=== PATIENT | female | born 1955 | race Caucasian/White ===

== ENCOUNTER 2019-08-10 13:58 | Inpatient (IN) ==
[2019-08-10] MEDS ORDERED: KLONOPIN PO ONE (14:37)
[2019-08-10] MEDS ORDERED: M.V.I.-12 10 ML, FOLIC ACID 1 MG, MAGNESIUM SULFATE 1 GM, THIAMINE 100 MG in NS 1,000 ML IV ONE (14:38)
[2019-08-10 14:46] LABS: URINE SOURCE CLEAN CATCH
[2019-08-10 14:49] LABS: BASO# 0.06 X1000 (0.0-0.2); EOS# 0.15 X1000 (0.0-0.7); EOS% 2.5 % (0.0-10.0); HEMATOCRIT 45.4 % (37.0-47.0); HEMOGLOBIN 15.2 g/dL (12.0-16.0); IMM GRAN# 0.03 X1000 (0.0-0.04); IMM GRAN% 0.5 % (0.0-0.5); LYMPH# 2.02 X1000 (1.2-3.4); LYMPH% 33.8 % (20.5-51.1); MCH 32.3 PG (27-31); MCHC 33.5 g/dL (33-37); MCV 96.6 FL (81-99); MONO# 0.64 X1000 (0.11-0.59); MONO% 10.7 % (1.7-9.3); NEUT# 3.07 X1000 (1.4-6.5); NEUT% 51.5 % (42.2-75.2); PLT 108 X1000 (130-400); RDW 12.4 % (11.5-14.5); WBC 5.97 X1000 (4.8-10.8)
[2019-08-10 14:50] LABS: BILIRUBIN URINE NEGATIVE (NEGATIVE); BLOOD URINE NEGATIVE (NEGATIVE); COLOR YELLOW; GLUCOSE URINE NEGATIVE (NEGATIVE); KETONE URINE NEGATIVE (NEGATIVE); LEUKOCYTES URINE LARGE (NEGATIVE); NITRITE URINE NEGATIVE (NEGATIVE); PH URINE 6.5; PROTEIN URINE TRACE mg/dL (NEGATIVE); SP GRAVITY URINE 1.023; TURBIDITY URINE CLEAR (CLEAR); UROBILINOGEN URINE NORMAL (NORMAL)
[2019-08-10 14:52] LABS: UR EPITHELIAL CELLS <10 /HPF (<10); URINE BACTERIA NEGATIVE /HPF; URINE RBC <10 /HPF (<10)
[2019-08-10 14:58] LABS: UR AMPHETAMINES QUAL NONE DETECTED (NONE DETECT); UR BARBITUATES QUAL NONE DETECTED (NONE DETECT); UR BENZODIAZEPIN QUAL NONE DETECTED (NONE DETECT); UR CANNABINOIDS QUAL NONE DETECTED (NONE DETECT); UR COCAINE QUAL NONE DETECTED (NONE DETECT); UR METHADONE QUAL NONE DETECTED (NONE DETECT); UR METHAMPHETAMINE QUAL NONE DETECTED (NONE DETECT); UR OPIATES QUAL NONE DETECTED (NONE DETECT); UR OXYCODONE QUAL NONE DETECTED (NONE DETECT); UR PCP QUAL NONE DETECTED (NONE DETECT); UR PROPOXYPHENE QUAL NONE DETECTED (NONE DETECT); UR TCA QUAL NONE DETECTED (NONE DETECT)
[2019-08-10 15:10] LABS: AGAP 16; ALBUMIN 4.3 g/dL (3.5-5.0); ALKALINE PHOSPHATASE 84 U/L (32-104); BUN 18 mg/dL (8-22); CALCIUM 9.5 mg/dL (8.8-10.2); CHLORIDE 99 mmol/L (98-107); COSMO 273; CREATININE 0.6 mg/dL (0.5-0.9); ESTIMATED GFR > 60; GLUCOSE 177 mg/dL (70-104); GOT 59 U/L (10-30); GPT 54 U/L (10-36); LIPASE 19 U/L (13-60); MAGNESIUM 1.6 mg/dL (1.5-2.7); POTASSIUM 4.5 mmol/L (3.5-5.1); SODIUM 133 mmol/L (136-145); TCO2 18 mmol/L (25-35); TOTAL PROTEIN 7.8 g/dL (6.3-8.3)
--- NOTE | 2019-08-10 15:46 | PROVIDER DOCUMENTATION ---
This chart was entered by Joanne Vega Scribe, acting as scribe for Mary Luque CRNP. [facility] Abuse/Overdose - General Chief Complaint: Req. Detox Stated Complaint: DETOX/ANIEXTY Time Seen by Provider: 08/10/19 14:28 Source: patient, family (son at bedside) Allergies/Adverse Reactions: Allergies Allergy/AdvReac Type Severity Reaction Status Date / Time codeine Allergy ITCHING Verified 08/10/19 14:54 Home Medications: Home Medication List Medication Instructions Recorded Confirmed Last Taken Type Atenolol 50 mg PO DAILY 04/01/12 08/10/19 04/19/15 History Omeprazole [Prilosec] 40 mg PO DAILY 04/01/12 08/10/19 04/19/15 History Umeclidinium Brm/Vilanterol Tr 1 each IH DAILY 11/25/14 08/10/19 04/19/15 History [Anoro Ellipta 62.5-25 Mcg INH] Baclofen 10 mg PO DAILY 06/29/18 08/10/19 Unknown History Fenofibrate 160 mg PO DAILY 06/29/18 08/10/19 Unknown History Lisinopril/Hydrochlorothiazide 1 each PO DAILY 06/29/18 08/10/19 Unknown History [Lisinopril-Hctz 10-12.5 mg Tab] Nabumetone [Relafen] 750 mg PO BID 06/29/18 08/10/19 Unknown History Zolpidem Tartrate [Ambien] 10 mg PO HS 06/29/18 08/10/19 Unknown History - History of Present Illness-Drug/Alcohol Nature of Presenting Problem: 64 yof presents to the ed requesting rehab for 30 years of etoh abuse and sts has been on a binge for the last month. pt admits to drinking 1-2 bottles of wine per night and sts last drink was last night. pt on exam is nontoxic in appearance and is not in active DT This episode of drinking or use began:: this morning (wanted to have rehab) Severity: reports: mild Situational problems related to:: reports: N/A Psychiatric Complaints: reports: insomnia. denies: hallucinating, suicidal ideation Associated Symptoms: denies: back/neck pain, chest pain, diarrhea, fever/chills, headaches, nausea, vomiting Any injuries associated with this episode of intoxication?: No Similar Symptoms Previously?: Yes Recently seen or treated by another doctor?: No - Substance Abuse Substance Use: reports: alcohol Age drug/alcohol abuse began?: 28 (30 years of abuse ETOH) Duration of Abuse? (years): 30 - Alcohol Abuse Usually drinks:: binge Usual alcohol intake amount?: 1-2 bottles wine Review of Systems - Adult - REVIEW OF SYSTEMS - ADULT Constitutional: denies: chills, fever Eyes: reports: no symptoms reported Ears, Nose, Mouth & Throat: reports: no symptoms reported Cardiovascular: denies: chest pain, palpitations Respiratory: denies: cough, shortness of breath, wheezing Gastrointestinal: denies: abdominal pain, diarrhea, nausea, vomiting Genitourinary: reports: no symptoms reported Musculoskeletal: denies: back pain, neck pain Integumentary: reports: no symptoms reported Neurological: reports: no symptoms reported Psychiatric: reports: see HPI, alcohol/drug dependence, insomnia Endocrine: reports: no symptoms reported Hematologic/Lymphatic: reports: no symptoms reported Allergic/Immunologic: reports: no symptoms reported All Other Systems: Reviewed and Negative Past History - Adult - PAST MEDICAL HISTORY-ADULT Review of Records: reports: Old Records Reviewed, Nursing Assessment Review, Medications Reviewed, Social history reviewed & non-contributory. Major Childhood Illnesses: reports: denies history Cardiovascular: reports: CAD, HTN, hyperlipidemia Respiratory: reports: asthma, COPD, lung disease Gastrointestinal: reports: GERD Obstetrical/Gynecological: reports: denies history Genitourinary: reports: kidney disease Musculoskeletal: reports: denies history Neurological: reports: denies history Psychiatric: reports: anxiety Endocrine/Immune: reports: denies history Other Conditions: reports: denies history - PRIOR SURGERIES/PROCEDURES Surgical/Procedure History: reports: cholecystectomy, hysterectomy, tonsillectomy, orthopedic (extremity) - IMMUNIZATION STATUS Childhood Immunizations: See Nurse Assessment Flu Vaccine: See Nurse Assessment - FAMILY HISTORY Family History: reviewed, not pertinent Physical Exam-General - PHYSICAL EXAM-ADULT Initial Vital Signs Reviewed: Yes - CONSTITUTIONAL General Appearance: alert, no apparent distress, anxious - EYES Eyes: PERRL/EOMI, pink conjunctivae - HEAD, EARS, NOSE, MOUTH & THROAT HENMT: moist mucous membranes - NECK Neck: non-tender, full range of motion, supple, normal inspection - RESPIRATORY Respiratory: chest non-tender, lungs clear, normal breath sounds - CARDIOVASCULAR Cardiovascular: normal peripheral pulses, regular rate, rhythm - CHEST (BREASTS) Chest/Breast: deferred - GASTROINTESTINAL (ABDOMEN) Abdominal Exam: normal bowel sounds, non tender, soft - GENITOURINARY Female Genitalia/Pelvic Exam: deferred Rectal Exam: deferred Hemoccult Exam: deferred - LYMPHATIC Lymphatic: no adenopathy - MUSCULOSKELETAL Back Exam: normal inspection, no CVA tenderness, no vertebral tenderness Extremity: normal range of motion, non-tender, normal gait, normal inspection - SKIN Integumentary: normal color, normal turgor, warm/dry - NEUROLOGIC Neurologic: grossly normal - PSYCHIATRIC Psych/Mental Status: normal mood/affect, normal thought content, normal thought process, oriented x 3 Progress - PLAN OF CARE/RESULTS Progress/Plan/Lab Results: Vital Signs - 8 hr 08/10/19 14:02 Temperature 98 F Pulse Rate 68 Respiratory Rate 18 Blood Pressure 112/77 O2 Sat by Pulse Oximetry 96 Laboratory Results - last 24 hr 08/10/19 08/10/19 08/10/19 14:40 14:40 14:40 WBC 5.97 RBC 4.70 Hgb 15.2 Hct 45.4 MCV 96.6 MCH 32.3 H MCHC 33.5 RDW Std Deviation 12.4 Plt Count 108 L MPV 10.0 Immature Gran % (Auto) 0.5 Neut % (Auto) 51.5 Lymph % (Auto) 33.8 Horry % (Auto) 10.7 H Eos % (Auto) 2.5 Baso % (Auto) 1.0 H Immature Gran # (Auto) 0.03 Neut # (Auto) 3.07 Lymph # (Auto) 2.02 Horry # (Auto) 0.64 H Eos # (Auto) 0.15 Baso # (Auto) 0.06 Sodium Potassium Chloride Carbon Dioxide Anion Gap BUN Creatinine Estimated GFR/1.73 m2 BUN/Creatinine Ratio Glucose Calculated Osmolality Calcium Magnesium Total Bilirubin AST ALT Alkaline Phosphatase Total Protein Albumin Globulin Albumin/Globulin Ratio Amylase 28 Lipase Urine Source Urine Color Urine Turbidity Urine pH Ur Specific Taylor Urine Protein Ur Glucose (Stick) Ur Ketones (Stick) Urine Blood Urine Nitrite Urine Bilirubin Urobilinogen Dipstick Urine Leukocytes Urine WBC (Auto) Urine RBC (Auto) U Epithel Cells (Auto) Urine Bacteria (Auto) Urine Opiates Screen Ur Oxycodone Screen Urine Methadone Screen U Propoxyphene Qual Ur Barbituates Screen Ur Tricyclics Screen Ur Phencyclidine Scrn Ur Amphetamines Screen U Methamphetamines Scrn U Benzodiazepines Scrn Urine Cocaine Screen U Cannabinoids Screen Plasma/Serum Ethyl Alc 08/10/19 08/10/19 08/10/19 14:40 14:40 14:40 WBC RBC Hgb Hct MCV MCH MCHC RDW Std Deviation Plt Count MPV Immature Gran % (Auto) Neut % (Auto) Lymph % (Auto) Horry % (Auto) Eos % (Auto) Baso % (Auto) Immature Gran # (Auto) Neut # (Auto) Lymph # (Auto) Horry # (Auto) Eos # (Auto) Baso # (Auto) Sodium 133 L Potassium 4.5 Chloride 99 Carbon Dioxide 18 L Anion Gap 16 BUN 18 Creatinine 0.6 Estimated GFR/1.73 m2 > 60 BUN/Creatinine Ratio 30 Glucose 177 H Calculated Osmolality 273 Calcium 9.5 Magnesium 1.6 Total Bilirubin 0.60 AST 59 H ALT 54 H Alkaline Phosphatase 84 Total Protein 7.8 Albumin 4.3 Globulin 4.0 Albumin/Globulin Ratio 1.0 Amylase Lipase 19 Urine Source CLEAN CATCH Urine Color YELLOW Urine Turbidity CLEAR Urine pH 6.5 Ur Specific Taylor 1.023 Urine Protein TRACE A Ur Glucose (Stick) NEGATIVE Ur Ketones (Stick) NEGATIVE Urine Blood NEGATIVE Urine Nitrite NEGATIVE Urine Bilirubin NEGATIVE Urobilinogen Dipstick NORMAL Urine Leukocytes LARGE A Urine WBC (Auto) 10-20 A Urine RBC (Auto) <10 U Epithel Cells (Auto) <10 Urine Bacteria (Auto) NEGATIVE Urine Opiates Screen NONE DETECTED Ur Oxycodone Screen NONE DETECTED Urine Methadone Screen NONE DETECTED U Propoxyphene Qual NONE DETECTED Ur Barbituates Screen NONE DETECTED Ur Tricyclics Screen NONE DETECTED Ur Phencyclidine Scrn NONE DETECTED Ur Amphetamines Screen NONE DETECTED U Methamphetamines Scrn NONE DETECTED U Benzodiazepines Scrn NONE DETECTED Urine Cocaine Screen NONE DETECTED U Cannabinoids Screen NONE DETECTED Plasma/Serum Ethyl Alc Orders Category Date Time Status ALCOHOL BLOOD Stat Lab 08/10/19 14:40 Completed AMYLASE [CHEM] Stat Lab 08/10/19 14:40 Completed CBC WITH DIFF [HEME] Stat Lab 08/10/19 14:40 Completed COMPREHENSIVE METABOLIC PANEL [CHEM] Stat Lab 08/10/19 14:40 Completed LIPASE [CHEM] Stat Lab 08/10/19 14:40 Completed MAGNESIUM [CHEM] Stat Lab 08/10/19 14:40 Completed URINALYSIS W/POSS RFLX CULT [URINALYSIS] Stat Lab 08/10/19 14:40 Completed URINE CULTURE [RM] Routine Lab 08/10/19 15:23 [address]UG S[address]EN [address] Stat Lab 08/10/19 14:40 Completed Clonazepam [Klonopin] Med 08/10/19 14:37 Discontinued 0.5 mg PO NOW ONE Mvi [M.v.i.-12] 10 ml Med 08/10/19 14:38 Discontinued Folic Acid 1 mg Magnesium Sulfate 1 gm Thiamine 100 mg 0.9% Sodium Chloride Inj [Ns] 1,000 ml IV NOW Result Diagrams: 08/10/19 14:40 08/10/19 14:40 - CONSULTS/PCP/HOSPITALIST Notification #1 *Consult/PCP/Hospitalist*: DR KENNEY Time Discussed: 15:45 Consult Disposition: Admit Departure - Departure Date of Disposition Decision: 08/10/19 Time of Disposition Decision: 15:45 DIAGNOSIS: Alcohol abuse, Alcohol withdrawal Disposition: ADMITTED INPATIENT 09 Certified Medical Emergency: Emergent Condition: Stable Referrals and Follow-Ups: Roberta Dey MD [Primary Care Provider] - Discharge Education: Steps to Quit Smoking, [id number] - Critical Care Note This patient required my direct & personal management of CC.: No Attestation - Physician/ RONEY Attestation Patient care was provided by Advanced Practice Provider:: Yes Advanced Practice Provider:: Mary Luque Advanced Practice Provider documentation review:: The Mid-level provider documentation, treatment plan and medical decision making was reviewed by the physician who agrees with all treatment and medical decision making by the MLP. The physician spent face to face time with patient:: No Advanced Practice Provider documentation review:: Supervising physician onsite and consulted in the evaluation and care of this patient. The physician did not have a face to face encounter with the patient. This chart was documented by the indicated scribe, (Joanne Vega Scribe) and accurately reflects the services I performed and decisions made by me, Mary Luque CRNP, as attested by the provider's signature.
[2019-08-10] MEDS ORDERED: SENOKOT PO PRN (16:09)
[2019-08-10] MEDS ORDERED: DESYREL PO PRN (16:09)
[2019-08-10] MEDS ORDERED: DULCOLAX PR PRN (16:09)
[2019-08-10] MEDS ORDERED: D5W 1,000 ML IV PRN (16:09)
[2019-08-10] MEDS ORDERED: TUBERSOL ID ONE (16:09)
[2019-08-10] MEDS ORDERED: MAALOX PLUS LIQUID PO PRN (16:09)
[2019-08-10] MEDS ORDERED: NICODERM PATCH TD PRN (16:09)
[2019-08-10] MEDS ORDERED: PHENOBARBITAL IV PRN (16:09)
[2019-08-10] MEDS ORDERED: ZOFRAN ODT PO PRN (16:09)
[2019-08-10] MEDS ORDERED: ZOFRAN IV PRN (16:09)
[2019-08-10 17:45] LABS: INR 0.87; PROTIME 12.3 Seconds (11.0-16.0)
[2019-08-10] MEDS: LIBRIUM PO SCH ×2 (17:49→22:17)
[2019-08-10] MEDS: ATARAX PO PRN (21:01)
[2019-08-10] MEDS: IMODIUM PO PRN (21:01)
[2019-08-10] MEDS: SEROQUEL PO PRN (22:21)
[2019-08-11] MEDS: MOTRIN PO PRN ×2 (03:21→20:48)
[2019-08-11] MEDS: LIBRIUM PO SCH ×4 (04:10→23:16)
[2019-08-11] MEDS: TYLENOL PO PRN (05:29)
[2019-08-11] MEDS: PROTONIX PO SCH (06:05)
[2019-08-11] MEDS: IMODIUM PO PRN (09:16)
[2019-08-11] MEDS: VITAMIN B-1 PO SCH (09:16)
[2019-08-11] MEDS: CYMBALTA PO SCH (09:16)
[2019-08-11] MEDS: THERA M PLUS PO SCH (09:16)
[2019-08-11] MEDS: ROCEPHIN 1 GM in NS 50 ML IV SCH (09:17)
[2019-08-11] MEDS: FOLIC ACID PO SCH (09:17)
--- NOTE | 2019-08-11 14:30 | PROGRESS NOTE ---
DATE: 08/11/2019 SUBJECTIVE: Patient states that she is feeling okay. Denies any fevers. States her muscle aches are improved and her tremors seem to have resolved currently. PHYSICAL EXAMINATION: Vital Signs: Temperature 97.5 degrees, pulse 67, respiratory rate 18, BP 120/60. General: The patient is awake, currently in no respiratory distress. HEENT: Normocephalic. Neck: Supple. Cardiovascular: Regular rate. Chest: Clear. Abdomen: Soft. Extremities: Moves all extremities. Neurologic: No changes. ASSESSMENT: 1. Nausea and vomiting. 2. Abdominal pain. 3. Myalgias. 4. Tremors. 5. Paresthesias. 6. Paroxysmal sweating. 7. Hypertension. 8. Chronic obstructive pulmonary disease. 9. Alcohol abuse withdrawal and stabilization. PLAN: We are going to continue Librium. Continue counseling. Further orders as needed. cc: Alan Gao MD
--- NOTE | 2019-08-11 19:48 | HISTORY AND PHYSICAL ---
CHIEF COMPLAINT: Nausea. HISTORY OF PRESENT ILLNESS: The patient is a 64-year-old female who presented to the ER with nausea, vomiting, abdominal pain, myalgias, paresthesias. SOCIAL HISTORY: The patient is , on disability. Lives at home in [place]. PAST MEDICAL HISTORY: Hypertension, COPD, anxiety, reflux, high cholesterol, history of blackouts due to alcohol, recurrent cellulitis, history of pancreatitis that was alcohol related. MEDICATIONS: Cymbalta 30, Klonopin 0.5, fenofibrate, Anoro, albuterol, atenolol 50, lisinopril/hydrochlorothiazide 10/12.5, Prilosec 40, Seroquel 75, Ambien 10. ALLERGIES: Codeine. REVIEW OF SYSTEMS: CIWA score is 30 secondary to nausea, vomiting, frequent dry heaves, diarrhea, moderate tremors at rest, moderately anxious, fidgety, unable to sit still, sensitivity to light and sound, difficulty concentrating, decreased p.o. intake. Denies any chest pain, palpitations. Denies fevers, chills. Denies headaches, blurred vision, change in vision. Denies any focalized numbness, tingling, weakness in her extremities. Does have diarrhea. Denies constipation, melena, hematochezia. Denies any dysuria, frequency, urgency. Denies skin rashes. SUBSTANCE ABUSE HISTORY: Patient was in [place] 20 years ago. Stayed sober for 15 years. Started drinking alcohol at age 14. Currently is drinking a bottle of wine a day. Started smoking at 14. Currently has been trying to vape for the past year. Prior to that was smoking a pack a day. FAMILY HISTORY: Noncontributory. PHYSICAL EXAMINATION: VITAL SIGNS: Reviewed. GENERAL: Patient is awake, alert. Currently in no respiratory distress, but is somewhat ill appearing. HEENT: Normocephalic. NECK: Supple. CARDIOVASCULAR: Regular rate. CHEST: Clear, nonlabored. ABDOMEN: Soft, nondistended. EXTREMITIES: Moves all extremities. NEUROLOGIC: No focal changes. SKIN: Warm, dry. No rashes. ASSESSMENT: 1. Nausea and vomiting. 2. Abdominal pain. 3. Myalgias. 4. Tremors. 5. Paresthesias. 6. Paroxysmal sweating. 7. Hypertension. 8. Chronic obstructive pulmonary disease. 9. Chronic anxiety. PLAN: We will continue patient in the hospital, continue high-dose Librium taper, and will follow. cc: Alan Gao MD
[2019-08-11] MEDS: ATARAX PO PRN (20:48)
[2019-08-11] MEDS: ROBAXIN PO PRN (20:48)
[2019-08-11] MEDS: SEROQUEL PO PRN (20:48)
[2019-08-12] MEDS: LIBRIUM PO SCH ×3 (04:14→17:07)
[2019-08-12] MEDS: PROTONIX PO SCH ×2 (04:15→07:30)
[2019-08-12 06:47] LABS: HEMATOCRIT 38.1 % (37.0-47.0); HEMOGLOBIN 12.6 g/dL (12.0-16.0); MCH 32.2 PG (27-31); MCHC 33.1 g/dL (33-37); MCV 97.4 FL (81-99); MPV 9.7 FL (7.4-10.4); RBC 3.91 XMIL (4.2-5.4); RDW 12.2 % (11.5-14.5); WBC 4.17 X1000 (4.8-10.8)
[2019-08-12 07:18] LABS: AGAP 15; ALBUMIN 3.7 g/dL (3.5-5.0); ALKALINE PHOSPHATASE 65 U/L (32-104); BUN 23 mg/dL (8-22); CALCIUM 8.9 mg/dL (8.8-10.2); CHLORIDE 109 mmol/L (98-107); COSMO 295; CREATININE 0.6 mg/dL (0.5-0.9); ESTIMATED GFR > 60; GLUCOSE 144 mg/dL (70-104); GOT 34 U/L (10-30); GPT 41 U/L (10-36); MAGNESIUM 1.7 mg/dL (1.5-2.7); POTASSIUM 3.6 mmol/L (3.5-5.1); SODIUM 145 mmol/L (136-145); TCO2 22 mmol/L (25-35); TOTAL PROTEIN 6.5 g/dL (6.3-8.3)
[2019-08-12] MEDS: ANORO ELLIPTA 62.5-25 MCG INH INH SCH (07:50)
[2019-08-12] MEDS: VITAMIN B-1 PO SCH (08:59)
[2019-08-12] MEDS: FOLIC ACID PO SCH (08:59)
[2019-08-12] MEDS: ROBAXIN PO PRN ×3 (08:59→22:58)
[2019-08-12] MEDS: MOTRIN PO PRN ×2 (08:59→17:07)
[2019-08-12] MEDS: ROCEPHIN 1 GM in NS 50 ML IV SCH ×2 (09:00→09:17)
[2019-08-12] MEDS: CYMBALTA PO SCH (09:00)
[2019-08-12] MEDS: THERA M PLUS PO SCH (09:00)
--- NOTE | 2019-08-12 16:43 | PROGRESS NOTE ---
DATE: 08/12/2019 SUBJECTIVE: Patient notes that she feels terrible. She is having muscle aches, fatigue, sweating. States overall she feels bad. OBJECTIVE: Vital Signs: Reviewed. Temp 97.8 degrees, pulse 82, respiratory rate 18, BP 137/73. General: Patient is currently in no respiratory distress. She is pleasant. HEENT: Normocephalic. Neck: Supple. Cardiovascular: Regular rate. Chest: Clear. Abdomen: Soft. Extremities: Moves all extremities. Neurologic: No focal changes. Skin: Warm, dry. No rashes. ASSESSMENT: 1. Nausea, vomiting. 2. Myalgias. 3. Paresthesias. 4. Tremors. 5. Alcohol abuse, withdrawal, and stabilization. 6. Chronic anxiety. 7. Chronic reflux. 8. Chronic obstructive pulmonary disease. 9. Hypertension. PLAN: We are going to slow down her Librium taper, although I do feel as though anxiety has a lot to do with her current symptoms more so than alcohol withdrawal. We will continue counseling and follow. cc: Alan Gao MD
[2019-08-12] MEDS: OMNICEF PO SCH (21:19)
[2019-08-12] MEDS: SEROQUEL PO PRN (22:57)
[2019-08-13] MEDS: PROTONIX PO SCH (06:06)
[2019-08-13] MEDS: BENTYL PO PRN (06:06)
[2019-08-13] MEDS: ANORO ELLIPTA 62.5-25 MCG INH INH SCH (07:55)
[2019-08-13] MEDS: CYMBALTA PO SCH (08:21)
[2019-08-13] MEDS: FOLIC ACID PO SCH (08:21)
[2019-08-13] MEDS: LIBRIUM PO SCH ×3 (08:21→22:51)
[2019-08-13] MEDS: VITAMIN B-1 PO SCH (08:21)
[2019-08-13] MEDS: THERA M PLUS PO SCH (08:22)
[2019-08-13] MEDS: OMNICEF PO SCH ×2 (08:22→22:51)
[2019-08-13] MEDS: MOTRIN PO PRN (11:57)
[2019-08-13] MEDS: ROBAXIN PO PRN ×2 (11:57→22:51)
--- NOTE | 2019-08-13 19:36 | PROGRESS NOTE ---
DATE: 08/13/2019 SUBJECTIVE: Patient notes she is still anxious, nervous, still stressed, still fatigued. Still having some mild sweating at times. Denies any fevers or chills. PHYSICAL EXAMINATION: Vital Signs: Reviewed. General: She is awake, alert. She is pleasant. She is in no current respiratory distress. HEENT: Normocephalic. Neck: Supple. Cardiovascular: Regular rate. Chest: Clear. Abdomen: Soft. Extremities: Moves all extremities. Neurologic: No focal changes. Skin: Warm and dry. No rashes. ASSESSMENT: 1. Urinary tract infection. We will continue antibiotics. 2. Acute hepatitis secondary to alcohol, improving. 3. Chronic anxiety. 4. Alcohol abuse withdrawal and stabilization. 5. Hypertension. 6. Chronic obstructive pulmonary disease. PLAN: Discussed with patient that she cannot stay on Librium forever and we certainly need to continue to slowly wean down. We will decrease from 50 t.i.d. to 25 every six hours and will follow. Expect that she will require two or three more days to slowly wean. cc: Alan Gao MD
[2019-08-13] MEDS: SEROQUEL PO PRN (22:52)
[2019-08-14] MEDS: BENTYL PO PRN (04:22)
[2019-08-14] MEDS: LIBRIUM PO SCH ×4 (04:22→22:37)
[2019-08-14] MEDS: ROBAXIN PO PRN (06:24)
[2019-08-14] MEDS: MOTRIN PO PRN (06:24)
[2019-08-14] MEDS: PROTONIX PO SCH (06:24)
[2019-08-14] MEDS: ANORO ELLIPTA 62.5-25 MCG INH INH SCH ×2 (07:30→09:24)
[2019-08-14] MEDS: VITAMIN B-1 PO SCH (08:50)
[2019-08-14] MEDS: THERA M PLUS PO SCH (08:50)
[2019-08-14] MEDS: FOLIC ACID PO SCH (08:50)
[2019-08-14] MEDS: CYMBALTA PO SCH (08:50)
--- NOTE | 2019-08-14 09:20 | Diag Imaging Result Doc PS360 ---
EXAM: KUB ABDOMEN HISTORY: pain TECHNIQUE: Three views COMPARISON: 04/25/2017. FINDINGS: There is moderate stool throughout the colon. No bowel obstruction. No organomegaly. No abnormal abdominal calcifications. Mild to moderate degenerative bone spurring in the lumbar spine. IMPRESSION: Moderate constipation Electronically signed by Moris Colmenares 08/14/2019 9:18 AM
--- NOTE | 2019-08-14 19:09 | PROGRESS NOTE ---
DATE: 08/14/2019 SUBJECTIVE: The patient states she has some abdominal pain diffusely. Denies any fevers or chills. Denies chest pains or palpitations. States she is able to eat without any difficulty. Does note she is still anxious and nervous. PHYSICAL EXAMINATION: Vital Signs: Reviewed and stable. Patient is awake and alert. She is in no current respiratory distress, lying in the bed. HEENT: Normocephalic. Neck: Supple. Cardiovascular: Regular rate. Chest: Clear. Abdomen: Soft. Extremities: Moves all extremities. Neurologic: No focal changes. Skin: Warm and dry. No rashes. ASSESSMENT: 1. Constipation as noted on her KUB. 2. Nausea, vomiting. Resolved. 3. Abdominal pain. 4. Myalgias. 5. Tremors. 6. Paresthesias. 7. Paroxysmal sweating. 8. Alcohol abuse, withdrawal, and stabilization. PLAN: We are going to continue patient in the hospital, continue to wean her Librium as tolerated. We will add lactulose for her constipation and will follow. cc: Alan Gao MD
[2019-08-14] MEDS: LACTULOSE PO SCH (22:36)
[2019-08-14] MEDS: SEROQUEL PO PRN (22:37)
[2019-08-15] MEDS: PROTONIX PO SCH (06:17)
[2019-08-15] MEDS: ANORO ELLIPTA 62.5-25 MCG INH INH SCH ×2 (07:29→07:30)
[2019-08-15] MEDS ORDERED: LIBRIUM PO SCH (09:00)
[2019-08-15] MEDS: LACTULOSE PO SCH ×2 (09:56→22:53)
[2019-08-15] MEDS: FOLIC ACID PO SCH (09:56)
[2019-08-15] MEDS: CYMBALTA PO SCH (09:56)
[2019-08-15] MEDS: REVIA PO SCH (09:56)
[2019-08-15] MEDS: THERA M PLUS PO SCH (09:57)
[2019-08-15] MEDS: VITAMIN B-1 PO SCH (09:57)
[2019-08-15] MEDS: TYLENOL PO PRN (12:55)
--- NOTE | 2019-08-15 21:01 | PROGRESS NOTE ---
DATE: 08/15/2019 SUBJECTIVE: Patient notes that she is still having difficulty getting out of bed, still tired, fatigued. Denies any chest pains, still having abdominal pain when she coughs. Denies any other issues currently. PHYSICAL EXAMINATION: Vital Signs: Reviewed. Temperature 97.6 degrees, pulse 69, respiratory rate 20, BP 163/90, saturation 96% on room air. General: Patient is awake, pleasant. She is in no distress. She has no tremors. HEENT: Normocephalic. Neck: Supple. Cardiovascular: Regular rate. Chest: Clear. Abdomen: Soft. Extremities: Moves all extremities, although generalized weakness. Neurologic: No changes. ASSESSMENT: 1. Nausea and vomiting. 2. Abdominal pain. 3. Myalgias. 4. Paresthesias. 5. Paroxysmal sweating. 6. Tremors, resolved. 7. Alcohol abuse withdrawal and stabilization. 8. Generalized weakness with adult failure to thrive. 9. Hypertension. PLAN: We will continue patient in the hospital. We have decreased Librium to 20 this morning, 10 tonight and hopefully 10 tomorrow morning, and then we will stop. We will continue physical therapy. Hopefully, her symptoms can resolve as far as her generalized weakness, and she can discharge home. She is stable from an alcohol withdrawal standpoint. We are going to add medication assisted therapy, naltrexone. cc: Alan Gao MD
[2019-08-15] MEDS: LIBRIUM PO SCH (22:52)
[2019-08-15] MEDS: SEROQUEL PO PRN (22:52)
[2019-08-16] MEDS: PROTONIX PO SCH (06:31)
[2019-08-16] MEDS: ANORO ELLIPTA 62.5-25 MCG INH INH SCH (07:30)
[2019-08-16] MEDS: REVIA PO SCH (09:34)
[2019-08-16] MEDS: CYMBALTA PO SCH (09:34)
[2019-08-16] MEDS: LACTULOSE PO SCH (09:35)
[2019-08-16] MEDS: LIBRIUM PO SCH (09:35)
[2019-08-16] MEDS: VITAMIN B-1 PO SCH (09:35)
[2019-08-16] MEDS: FOLIC ACID PO SCH (09:35)
[2019-08-16] MEDS: THERA M PLUS PO SCH (09:35)
[2019-08-16 12:54] VITALS: BP 141/65
--- NOTE | 2019-08-17 18:47 | DISCHARGE SUMMARY ---
ADMISSION DATE: 08/10/2019 DISCHARGE DATE: 08/16/2019 DISCHARGE DIAGNOSES: 1. Nausea and vomiting. 2. Abdominal pain. 3. Myalgias. 4. Tremors. 5. Paresthesias. 6. Generalized weakness with frequent falls. 7. Alcohol abuse withdrawal and stabilization. 8. Hypertension. 9. Emphysema. 10. Chronic anxiety. 11. High cholesterol. CONSULTATIONS: None. PROCEDURES: None. BRIEF HOSPITAL COURSE: The patient is a 64-year-old female who presented to the hospital secondary to nausea, vomiting, abdominal pain, tremors, and myalgias. She was acutely intoxicated. She had been drinking heavily and started going into withdrawal. We admitted her, and placed her on high-dose Librium taper. Continue to follow her physical deconditioning prolonged her hospital course. We had to slow her Librium taper, and get physical therapy involved. Thankfully, on discharge, she is able to ambulate short distances. She states she does not want to go to rehab, and wants to go home. DISPOSITION: Discussed with patient that she needs to avoid all persons, places, and situations where she has been using and abusing in the past. She needs outpatient life counseling as well as drug counseling. She is to continue physical therapy, continue to force herself to be more mobile. We will continue her home medications. She is off Librium. We did discharge her home with medication assisted therapy, i.e. naltrexone. cc: Alan Gao MD
== END 2019-08-16 14:25 | disposition home health service (06) | DRG 897 ==
LOC: P.ED 13:58 → P.MEDSURG 18:21
PROVIDERS: ADMIT Family Medicine; ATTEND Family Medicine